=== PATIENT | male | born 1980 | race African-American/Black ===

== ENCOUNTER 2018-12-01 12:59 | Emergency (ER) | payer BC, MEDICAID ==
[~2018-12-01] VITALS: Ht 170.2 cm; Wt 95.0 kg
[2018-12-01 15:38] VITALS: BP 139/100
== END 2018-12-01 18:58 | disposition left against medical advice (07) ==
LOC: ER 15:26
DX: Z53.21 Procedure and treatment not carried out due to patient leaving prior to being seen by health care provider (principal)

== ENCOUNTER 2018-12-04 06:30 | Emergency (ER) | payer MEDICAID ==
[~2018-12-04] VITALS: Ht 170.2 cm; Wt 97.9 kg
[2018-12-04 10:20] VITALS: BP 121/75
== END 2018-12-04 10:20 | disposition home or self-care (01) ==
LOC: ER 06:30
DX: K02.9 Dental caries, unspecified (principal); I10 Essential (primary) hypertension
CPT/HCPCS: 99283